=== PATIENT | female | born 2000 | race African-American/Black ===

== ENCOUNTER 2022-11-27 08:08 | Observation (INO) | payer MEDICAID ==
[~2022-11-27] VITALS: Ht 162.6 cm; Wt 103.4 kg
[2022-11-27] MEDS ORDERED: PREN-162 PO (09:20)
[2022-11-27] MEDS ORDERED: PREN1CAP PO (09:26)
== END 2022-11-27 09:34 | disposition home or self-care (01) ==
LOC: LDRP 08:08
PROVIDERS: ADMIT Obstetrics & Gynecology; ATTEND Obstetrics & Gynecology
DX: O24.419 Gestational diabetes mellitus in pregnancy, unspecified control (principal); Z3A.31 31 weeks gestation of pregnancy
CPT/HCPCS: 59025; 76818; 81002; 82948; 82962; 94760; G0378

== ENCOUNTER 2022-12-27 21:52 | Observation (INO) | payer MEDICAID ==
[~2022-12-27 21:52] MED LIST: PREN-162 PO; PREN1CAP PO
[2022-12-27] MEDS ORDERED: TERBUTALINE SULFATE 1 MG/ML 1ML VIAL SC SCH (23:15)
== END 2022-12-28 00:45 | disposition home or self-care (01) ==
LOC: LDRP 21:52
PROVIDERS: ADMIT Obstetrics & Gynecology; ATTEND Obstetrics & Gynecology
DX: O62.9 Abnormality of forces of labor, unspecified (principal); Z3A.35 35 weeks gestation of pregnancy; Z79.899 Other long term (current) drug therapy
CPT/HCPCS: 59025; 76818; 81002; 82962; 96372; G0378; J3105

== ENCOUNTER 2022-12-29 22:18 | Observation (INO) | payer MEDICAID | END 2022-12-29 23:28 | disposition home or self-care (01) | LOC: LDRP 22:18 | PROVIDERS: ADMIT Obstetrics & Gynecology; ATTEND Obstetrics & Gynecology | DX: O62.9 Abnormality of forces of labor, unspecified (principal); O24.419 Gestational diabetes mellitus in pregnancy, unspecified control; Z3A.35 35 weeks gestation of pregnancy | CPT/HCPCS: 59025; 81002; G0378 ==

== ENCOUNTER 2023-01-03 08:55 | Observation (INO) | payer MEDICAID | END 2023-01-17 11:16 | disposition home or self-care (01) | LOC: LDRP 01-17 09:35 → UNDOADMOB 01-17 09:35 → LDRP 01-17 09:36 | PROVIDERS: ADMIT Obstetrics & Gynecology; ATTEND Obstetrics & Gynecology | DX: O24.419 Gestational diabetes mellitus in pregnancy, unspecified control (principal); O62.9 Abnormality of forces of labor, unspecified; Z3A.38 38 weeks gestation of pregnancy | CPT/HCPCS: 59025; 76818; 81002; 94760; G0378 ==

== ENCOUNTER 2023-01-14 21:09 | Observation (INO) | payer MEDICAID ==
[~2023-01-14] VITALS: Ht 162.6 cm; Wt 64.4 kg
[2023-01-14] MEDS ORDERED: LACTATED RINGER'S 1,000 ML IV ONE (22:15)
== END 2023-01-15 00:27 | disposition home or self-care (01) ==
LOC: LDRP 21:09
PROVIDERS: ADMIT Obstetrics & Gynecology; ATTEND Obstetrics & Gynecology
DX: O60.03 Preterm labor without delivery, third trimester (principal); Z3A.38 38 weeks gestation of pregnancy
CPT/HCPCS: 59025; 76818; 81002; 82948; 82962; 94760; 96360; 96361; G0378

== ENCOUNTER 2023-01-26 08:00 | Inpatient (IN) | payer MEDICAID ==
[~2023-01-26] VITALS: Ht 165.1 cm; Wt 111.6 kg
[2023-01-26] MEDS ORDERED: BUTORPHANOL TARTRATE 2 MG/1 ML VIAL IV PRN (08:15)
[2023-01-26] MEDS ORDERED: PHISODERM TOP SOLN 240ML BTL TOP PRN (08:15)
[2023-01-26] MEDS ORDERED: LIDOCAINE 2%HCL (LOCAL ANESTH.) INJ 20ML MDV IJ PRN (08:15)
[2023-01-26] MEDS ORDERED: PROMETHAZINE HCL 25 MG/ML 1ML IV PRN (08:15)
[2023-01-26 08:51] LABS: Nucleated Red Blood Cells % 0.1 %; White Blood Cell 11.3 10^3/uL (4.4-10.8)
[2023-01-26 08:53] LABS: Basophils # (auto) 0 10 ^3/uL (0-0.2); Basophils % (auto) 0.3 % (0.0-2.0); Eosinophils # (auto) 0.1 10 ^3/uL (0-0.8); Eosinophils % (auto) 0.9 % (0.0-7.0); Hematocrit 34.9 % (36.0-46.0); Hemoglobin 11.2 g/dL (12.2-16.2); Lymphocytes # (auto) 2.6 10 ^3/uL (0.4-5.4); Lymphocytes % (auto) 22.9 % (10.0-50.0); Mean Corpuscular Hemoglobin 25.9 pg (28.0-32.0); Mean Corpuscular Hgb Conc. 32.1 g/dL (32.0-36.0); Mean Corpuscular Volume 80.7 fL (80.0-100.0); Monocytes # (auto) 0.5 10 ^3/uL (0-1.3); Monocytes % (auto) 4.8 % (0.0-12.0); Neutrophils % (auto) 71.1 % (37.0-80.0); Red Blood Cells 4.33 10^6/uL (4.0-5.20); Red Cell Distribution Width 15.5 % (11.8-14.3)
[2023-01-26 09:05] LABS: INR 0.89 (0.9-1.15); Partial Thromboplastin Time 27.1 sec (24.6-33.4)
[2023-01-26 09:21] LABS: Albumin 2.6 g/dL (3.4-5.0); Calcium 9.1 mg/dL (8.5-10.1); Potassium 3.9 mmol/L (3.5-5.1)
[2023-01-26 09:25] LABS: BUN/Creatinine Ratio 11.3 (10.0-20.0); Bilirubin, Total 0.3 mg/dL (0.2-1.0); Total Protein 6.7 g/dL (6.4-8.2)
[2023-01-26 09:27] LABS: Alcohol, Urine < 3.0 mg/dL (0-10); Amphetamine Screen, Urine NEGATIVE (NEGATIVE); Barbiturate Scree,Urine NEGATIVE (NEGATIVE); Benzodiazephine Screen, Urine NEGATIVE (NEGATIVE); Cannabinoid Screen, Urine NEGATIVE (NEGATIVE); Cocaine Screen, Urine NEGATIVE (NEGATIVE); Opiate Scree,Urine NEGATIVE (NEGATIVE); Phencyclidine Screen, Urine NEGATIVE (NEGATIVE)
[2023-01-26] MEDS ORDERED: LACT. RINGERS/OXYTOCIN 20UNITS 500 ML IV ONE ×2 (10:00→10:30)
[2023-01-26] MEDS ORDERED: METHYLERGONOVINE MALEATE 0.2 MG/ML AMP IM ONE (10:00)
[2023-01-26] MEDS ORDERED: ACCU-CHEK COMFORT CURVE STRIP VI SCH (10:00)
[2023-01-26] MEDS: miSOPROStol 50 MCG per PRE-CUT 1/2 TAB PO PRN ×3 (10:08→22:54)
[2023-01-26] MEDS ORDERED: LACT. RINGERS/OXYTOCIN 20UNITS 1,000 ML IV SCH (10:30)
[2023-01-26] MEDS: LACTATED RINGER'S 1,000 ML IV SCH (17:10)
[2023-01-26 18:34] LABS: Urine Bacteria NONE SEEN /hpf (None Seen); Urine Blood Negative /uL (Negative); Urine Mucus FEW (None Seen); Urine Specific Gravity 1.018 (1.001-1.035); Urine WBC 3 /hpf (0 - 5)
[2023-01-26] MEDS: ACCU-CHEK COMFORT CURVE STRIP VI SCH (20:00)
[2023-01-26] MEDS: DERMOPLAST 60ML BOTTLE TOP PRN (21:58)
[2023-01-26] MEDS: WITCH HAZEL-GLYCERIN PAD TOP PRN (21:58)
[2023-01-27] MEDS: PROMETHAZINE HCL 25 MG/ML 1ML IM PRN ×2 (00:58→05:01)
[2023-01-27] MEDS: BUTORPHANOL TARTRATE 2 MG/1 ML VIAL IV PRN ×2 (01:03→04:59)
[2023-01-27] MEDS: LACTATED RINGER'S 1,000 ML IV SCH ×2 (01:04→07:36)
[2023-01-27] MEDS: miSOPROStol 50 MCG per PRE-CUT 1/2 TAB PO PRN (03:05)
[2023-01-27] MEDS: ACCU-CHEK COMFORT CURVE STRIP VI SCH ×2 (04:06)
[2023-01-27] MEDS ORDERED: TERBUTALINE SULFATE 1 MG/ML 1ML VIAL SC PRN (07:15)
[2023-01-27] MEDS ORDERED: LACT. RINGERS/OXYTOCIN 20UNITS 1,000 ML IV SCH (07:15)
[2023-01-27] MEDS ORDERED: ROPIVACAINE HCL 200 ML EPI SCH (08:00)
[2023-01-27] MEDS ORDERED: ePHEDrine SULFATE 50 MG/ML AMP IV ONE (08:00)
[2023-01-27] MEDS ORDERED: LACTATED RINGER'S 1,000 ML IV ONE (08:00)
[2023-01-27] MEDS ORDERED: NALOXONE HCL 0.4 MG/ML VIAL IV ONE (08:00)
[2023-01-27] MEDS ORDERED: Lidocaine W-Epinephrine 1.5%-1:200,000 INJ 10ml Vial ONE (08:29)
[2023-01-27] MEDS ORDERED: LIDOCAINE W/ EPINEPHRINE 1.5 % INJ 5ML AMP IJ ONE (09:15)
[2023-01-27] MEDS ORDERED: diphenhdrAMINE HCL 50 MG/1 ML VL IV PRN (09:30)
[2023-01-27] MEDS ORDERED: CARBOPROST TROMETHAMINE 250 MCG/1ML VIAL IM PRN (09:30)
[2023-01-27] MEDS ORDERED: miSOPROStol 100 mcg TAB SL PRN (09:30)
[2023-01-27] MEDS ORDERED: MINERAL OIL TOPICAL 10ml TOP PRN (09:30)
[2023-01-27] MEDS ORDERED: ACETAMINOPHEN 325 MG TAB PO PRN ×2 (09:30→14:30)
[2023-01-27] MEDS ORDERED: TRANEXAMIC ACID 1,000 MG in SODIUM CHL 0.9% 100 ML IV PRN (09:30)
[2023-01-27] MEDS ORDERED: ONDANSETRON HCL 4 MG/2 ML VIAL IV PRN ×2 (09:30)
[2023-01-27 10:08] LABS: Basophils # (auto) 0 10 ^3/uL (0-0.2); Basophils % (auto) 0.1 % (0.0-2.0); Eosinophils # (auto) 0 10 ^3/uL (0-0.8); Hemoglobin 11.3 g/dL (12.2-16.2); Lymphocytes # (auto) 1.1 10 ^3/uL (0.4-5.4); Monocytes # (auto) 0.5 10 ^3/uL (0-1.3)
[2023-01-27 10:10] LABS: Hematocrit 35.9 % (36.0-46.0); Mean Corpuscular Hemoglobin 25.7 pg (28.0-32.0); Mean Corpuscular Hgb Conc. 31.6 g/dL (32.0-36.0); Mean Corpuscular Volume 81.3 fL (80.0-100.0); Monocytes % (auto) 2.7 % (0.0-12.0); Neutrophils # (auto) 14.8 10 ^3/uL (1.6-8.6); Neutrophils % (auto) 90.2 % (37.0-80.0); Nucleated Red Blood Cells % 0.1 %; Red Blood Cells 4.41 10^6/uL (4.0-5.20); Red Cell Distribution Width 15.6 % (11.8-14.3); White Blood Cell 16.5 10^3/uL (4.4-10.8)
[2023-01-27 10:15] LABS: Albumin 2.4 g/dL (3.4-5.0); Calcium 8.9 mg/dL (8.5-10.1); Potassium 3.8 mmol/L (3.5-5.1)
[2023-01-27 10:18] LABS: BUN/Creatinine Ratio 8.3 (10.0-20.0); Bilirubin, Total 0.4 mg/dL (0.2-1.0); Total Protein 6.4 g/dL (6.4-8.2)
[2023-01-27 10:59] LABS: INR 0.94 (0.9-1.15); Partial Thromboplastin Time 29.3 sec (24.6-33.4)
[2023-01-27 11:07] LABS: RPR Non Reactive (Non Reactive)
[2023-01-27] MEDS ORDERED: MINERAL OIL TOPICAL 10ml TOP ONE (11:20)
[2023-01-27] MEDS ORDERED: DIPHENOXYLATE W/ATROPINE 2.5 MG TAB PO SCH (12:00)
[2023-01-27] MEDS ORDERED: IBUPROFEN 600 MG TAB PO PRN (14:30)
[2023-01-27] MEDS: IBUPROFEN 600 MG TAB PO PRN (16:35)
[2023-01-27 19:00] VITALS: BP 113/54
[2023-01-27] MEDS ORDERED: DOCUSATE SOD 100 MG CAP PO SCH (22:00)
[2023-01-27 23:00] VITALS: BP 122/57
[2023-01-28] MEDS: IBUPROFEN 600 MG TAB PO PRN ×2 (05:52→12:50)
[2023-01-28 06:26] LABS: Eosinophils # (auto) 0.3 10 ^3/uL (0-0.8); Hematocrit 31.5 % (36.0-46.0); Monocytes # (auto) 0.9 10 ^3/uL (0-1.3); Red Blood Cells 3.84 10^6/uL (4.0-5.20); Red Cell Distribution Width 15.5 % (11.8-14.3)
[2023-01-28 06:28] LABS: Basophils # (auto) 0.1 10 ^3/uL (0-0.2); Basophils % (auto) 0.3 % (0.0-2.0); Eosinophils % (auto) 1.9 % (0.0-7.0); Hemoglobin 10.3 g/dL (12.2-16.2); Lymphocytes # (auto) 4.1 10 ^3/uL (0.4-5.4); Lymphocytes % (auto) 25.9 % (10.0-50.0); Mean Corpuscular Hemoglobin 26.8 pg (28.0-32.0); Mean Corpuscular Hgb Conc. 32.7 g/dL (32.0-36.0); Mean Corpuscular Volume 81.9 fL (80.0-100.0); Monocytes % (auto) 5.8 % (0.0-12.0); Neutrophils # (auto) 10.4 10 ^3/uL (1.6-8.6); Neutrophils % (auto) 66.1 % (37.0-80.0); White Blood Cell 15.8 10^3/uL (4.4-10.8)
[2023-01-28 06:30] VITALS: BP 120/64
[2023-01-28 07:00] VITALS: BP 125/64
[2023-01-28] MEDS: ACCU-CHEK COMFORT CURVE STRIP VI SCH (07:21)
[2023-01-28 08:00] VITALS: BP 125/64
[2023-01-28 09:00] VITALS: BP 111/56
[2023-01-28] MEDS ORDERED: FERR324T16 PO (10:04)
[2023-01-28] MEDS ORDERED: DOCU100C10 PO (10:04)
[2023-01-28] MEDS ORDERED: IBU600T PO (10:04)
[2023-01-28] MEDS ORDERED: ACET325T10 PO (10:04)
[2023-01-28] MEDS ORDERED: PREN1CAP PO (10:04)
[2023-01-28 11:00] VITALS: BP 117/59
[2023-01-28] MEDS: DERMOPLAST 60ML BOTTLE TOP PRN (11:55)
[2023-01-28] MEDS: WITCH HAZEL-GLYCERIN PAD TOP PRN (11:55)
[2023-01-28 13:33] LABS: Protein, Urine 17.3 mg/dL (0.0-11.9)
[2023-01-28 15:29] VITALS: BP 122/62
== END 2023-01-28 15:45 | disposition home or self-care (01) | DRG 560 ==
LOC: LDRP 08:00
PROVIDERS: ADMIT Obstetrics & Gynecology; ATTEND Obstetrics & Gynecology
PROC: 10E0XZZ Delivery of Products of Conception, External Approach (ICD-10-PCS; principal; 2023-01-26)
PROC: 0UQMXZZ Repair Vulva, External Approach (ICD-10-PCS; 2023-01-26)
PROC: 3E0R3BZ Introduction of Anesthetic Agent into Spinal Canal, Percutaneous Approach (ICD-10-PCS; 2023-01-26)
PROC: 00HU33Z Insertion of Infusion Device into Spinal Canal, Percutaneous Approach (ICD-10-PCS; 2023-01-26)
PROC: 0UQGXZZ Repair Vagina, External Approach (ICD-10-PCS; 2023-01-26)
PROC: 3E0P7VZ Introduction of Hormone into Female Reproductive, Via Natural or Artificial Opening (ICD-10-PCS; 2023-01-26)
DX: O48.0 Post-term pregnancy (principal); Z37.0 Single live birth; D62 Acute posthemorrhagic anemia; O90.81 Anemia of the puerperium; O70.0 First degree perineal laceration during delivery; O66.0 Obstructed labor due to shoulder dystocia; O71.5 Other obstetric injury to pelvic organs; O24.420 Gestational diabetes mellitus in childbirth, diet controlled; Z3A.40 40 weeks gestation of pregnancy; Z88.5 Allergy status to narcotic agent; Z79.899 Other long term (current) drug therapy
CPT/HCPCS: 36415; 59025; 59409; 62282; 80053; 80307; 81001; 81002; 82570; 82948; 82962; 84156; 85025; 85610; 85730; 86592; 86850; 86900; 86901; 94760; 94762; 96360; 96361; 96365; 96366; 96372; 96374; 96375; G0378; J2590